=== PATIENT | female | born 1980 | race African-American/Black ===

== ENCOUNTER 2025-10-13 23:11 | Emergency (ER) | payer MEDICAID ==
[~2025-10-13] VITALS: Ht 172.7 cm; Wt 86.0 kg
[2025-10-13 23:19] VITALS: O2SAT 98
[2025-10-13] MEDS: ACETAMINOPHEN 500MG TABLET PO ONE (23:56)
[2025-10-14] MEDS ORDERED: NAPR-1176 MT (00:52)
[2025-10-14] MEDS ORDERED: LIDO-53 TP (00:52)
[2025-10-14 01:00] VITALS: BP 136/78; PULSE 79; RESP 18; TEMP 36.9; O2SAT 98
== END 2025-10-14 02:00 | disposition home or self-care (01) ==
LOC: ER 23:54
DX: M79.671 Pain in right foot (principal); F41.9 Anxiety disorder, unspecified; F32.A Depression, unspecified; I10 Essential (primary) hypertension; Z79.1 Long term (current) use of non-steroidal anti-inflammatories (NSAID); Z79.899 Other long term (current) drug therapy; Z88.0 Allergy status to penicillin
CPT/HCPCS: 99283